=== PATIENT | male | born 1990 | race Caucasian/White ===

== ENCOUNTER 2019-02-08 11:59 | Emergency (ER) | payer BC ==
--- NOTE | 2019-02-08 12:27 | EDM.PDOC ---
ED HPI GENERAL MEDICAL PROBLEM - General Chief Complaint: Upper Extremity Injury/Pain Stated Complaint: RT HAND RED AND SWOLLEN Time Seen by Provider: 02/08/19 12:14 Source of Information: Reports: Patient, RN Notes Reviewed History Limitations: Reports: No Limitations - History of Present Illness INITIAL COMMENTS - FREE TEXT/NARRATIVE: Patient is a 28-year-old male who presents to the ED for evaluation of a reddened swollen hand. The patient states that he recently had a friend , and he was drinking at the and he became frustrated about his friend and he ended up punching a wall the day before last. This resulted in a 1 cm laceration to his middle knuckle of his right hand. The patient states that everything was okay on that day, however he went to work yesterday and his hand was red, swollen and warm. He states when he got home from work he will went into the shower and he squeezed on his hand where the injury was and he got some clear liquid that came out. He notes that this morning he woke up and the backside of his hand was red and swollen as well. The patient denies any numbness or tingling into the extremities and can make a fist, however not with full strength as it is a little bit painful to do so. - Related Data Allergies Allergy/AdvReac Type Severity Reaction Status Date / Time No Known Allergies Allergy Verified 02/08/19 12:11 Home Meds: Home Meds Cephalexin [Keflex] 500 mg PO TID #30 capsule 02/08/19 [Rx] Past Medical History - Past Health History Medical/Surgical History: Denies Medical/Surgical History Social & Family History - Tobacco Use Smoking Status *Q: Current Every Day Smoker Years of Tobacco use: 10 Packs/Tins Daily: 0.3 - Caffeine Use Caffeine Use: Reports: Energy Drinks - Recreational Drug Use Recreational Drug Use: No Review of Systems - Review of Systems Review Of Systems: See Below Constitutional: Denies: Chills, Fever Eyes: Reports: No Symptoms Ears: Reports: No Symptoms Nose: Reports: No Symptoms Mouth/Throat: Reports: No Symptoms Respiratory: Reports: No Symptoms Cardiovascular: Reports: No Symptoms GI/Abdominal: Reports: No Symptoms Genitourinary: Reports: No Symptoms Musculoskeletal: Reports: Hand Pain (Right dorsal hand) Skin: Reports: Erythema, Wound (1cm linear laceration to 3rd MCP) Neurological: Denies: Numbness, Tingling Psychiatric: Reports: No Symptoms ED EXAM, GENERAL - Physical Exam Exam: See Below Exam Limited By: No Limitations General Appearance: Alert, WD/WN, No Apparent Distress Respiratory/Chest: No Respiratory Distress, Lungs Clear, Normal Breath Sounds, No Accessory Muscle Use, Chest Non-Tender Cardiovascular: Normal Peripheral Pulses, Regular Rate, Rhythm, No Murmur Peripheral Pulses: 3+: Radial (L), Radial (R) Extremities: Non-Tender, Normal Capillary Refill, Limited Range of Motion (pt is able to make a fist, however he states it is painful do to so ), Increased Warmth (of dorsal right hand), Redness (of dorsal right hand) Neurological: Alert, Oriented, Normal Cognition, No Motor/Sensory Deficits Psychiatric: Normal Affect, Normal Mood Skin Exam: Warm, Dry, Intact, Normal Color, No Rash, Erythema (to dorsal right hand, this is well demarcated and ends at the patient's wrist joint.), Wound/ Incision (1 cm linear laceration to the 3rd MCP that is scabbed over.) Course - Vital Signs Last Recorded V/S: Last Vital Signs Temp 98.5 F 02/08/19 12:06 Pulse 75 02/08/19 12:06 Resp 18 02/08/19 12:06 BP 128/80 02/08/19 12:06 Pulse Ox 98 02/08/19 12:06 - Orders/Labs/Meds Orders: Active Orders 24 hr Category Date Time Status Vaccines to be Administered [RC] PER UNIT ROUTINE Care 02/08/19 12:36 Active Hand Comp Min 3V Rt [CR] Stat Exams 02/08/19 12:16 Taken Meds: Medications Discontinued Medications Generic Name Dose Route Start Last Admin Trade Name Freq PRN Reason Stop Dose Admin Diphtheria/Tetanus/Acell Pertussis 0.5 ml 02/08/19 12:36 02/08/19 12:44 Adacel IM 02/08/19 12:37 0.5 ml .ONCE ONE Administration - Re-Assessments/Exams Free Text/Narrative Re-Assessment/Exam: 02/08/19 12:28 Patient presents to the ED for the evaluation of a red and swollen right hand. This does involve only the dorsal aspect of his right hand. He is unsure whether or not he could've broken something I did order a hand x-ray to be obtained for further evaluation, and is likely that the gentleman has a cellulitis involving the dorsum of his hand. He will be started on oral antibiotics. 02/08/19 12:34 Patient's hand x-ray is done, and does not appear to have any sign of acute fracture of his metacarpals or phalanges. Will send him a prescription for Keflex 500 mg 3 times daily for 10 days. Since he is unsure of his last tetanus booster, we will go ahead and update that for him today. Departure - Departure Time of Disposition: 12:36 Disposition: Home, Self-Care 01 Condition: Good Clinical Impression: Right hand pain Cellulitis Qualifiers: Site of cellulitis: extremity Site of cellulitis of extremity: upper extremity Laterality: right Qualified Code(s): L03.113 - Cellulitis of right upper limb - Discharge Information *PRESCRIPTION DRUG MONITORING PROGRAM REVIEWED*: No *COPY OF PRESCRIPTION DRUG MONITORING REPORT IN PATIENT SIS: No Prescriptions: Cephalexin [Keflex] 500 mg PO TID #30 capsule Instructions: Cellulitis, Adult Referrals: PCP,None [Primary Care Provider] - Forms: ED Department Discharge Additional Instructions: You have been evaluated in the ED today for your right hand pain. Your x-ray did not demonstrate any sign of an acute fracture of your right hand. Your tetanus booster was updated at today's visit, this will be good for 10 years. The redness on the back of your hand, is most likely due to cellulitis. You have been given a prescription for oral antibiotics. Please take them as directed. These have been electronically sent to the [place] [facility] located in the [facility]. You may take 500 mg Tylenol or 600 mg ibuprofen every 6 hours as needed for pain relief of the hand. Please return to the ED if your symptoms change or worsen. - My Orders Last 24 Hours: My Active Orders 02/08/19 12:16 Hand Comp Min 3V Rt [CR] Stat 02/08/19 12:36 Vaccines to be Administered [RC] PER UNIT ROUTINE - Assessment/Plan Last 24 Hours: My Active Orders 02/08/19 12:16 Hand Comp Min 3V Rt [CR] Stat 02/08/19 12:36 Vaccines to be Administered [RC] PER UNIT ROUTINE
[2019-02-08] MEDS ORDERED: Diphtheria,Pertussis(Acell),Tetanus Vaccine 0.5 ML Syringe IM ONE (12:36)
--- NOTE | 2019-02-09 17:56 | CR ---
Right hand: Four views of the right hand were obtained. Comparison: No previous hand exam. Small cyst is noted within the distal navicular bone. Joint spaces within the hands and wrist appear maintained. No fracture, dislocation or other bony abnormality is seen. Soft tissue swelling is seen. Impression: 1. Soft tissue swelling. 2. Incidental cyst within the distal navicular bone. 3. No acute bony abnormality is identified. Diagnostic code #2
== END 2019-02-08 13:04 | disposition home or self-care (01) ==
LOC: JD.ED 11:59
DX: L03.113 Cellulitis of right upper limb (principal); F17.210 Nicotine dependence, cigarettes, uncomplicated; Z23 Encounter for immunization
CPT/HCPCS: 73130-26-RT; 73130-RT; 90471; 90700; 99283; 99283-25

== ENCOUNTER 2019-09-22 20:13 | Emergency (ER) | payer BC ==
[2019-09-22] MEDS ORDERED: Acetaminophen/Codeine 300-30 MG Tab PO ONE (20:50)
--- NOTE | 2019-09-22 20:52 | EDM.PDOC ---
ED HPI GENERAL MEDICAL PROBLEM - General Chief Complaint: Lower Extremity Injury/Pain Stated Complaint: MATUTE PAIN BOTH LEGS Time Seen by Provider: 09/22/19 20:44 Source of Information: Reports: Patient History Limitations: Reports: No Limitations - History of Present Illness INITIAL COMMENTS - FREE TEXT/NARRATIVE: Patient's unfortunate 29-year-old male who presents emergency department complaining of bilateral matute pain. Patient reports that he works on the [employer] and has been climbing ladders to the nest and illness started having pain to his bilateral shins. Pain is worse with ambulation improves with rest does not alleviate. Patient denies any pain to his calves. Distal neurovascular is intact Bilateral Lower Leg Pain Score (Numeric/FACES): 10 - Related Data Allergies Allergy/AdvReac Type Severity Reaction Status Date / Time No Known Allergies Allergy Verified 02/08/19 12:11 Home Meds: Home Meds Acetaminophen with Codeine [Tylenol with Codeine #3 Tablet] 1 each PO Q4H PRN # 20 tablet 09/22/19 [Rx] Past Medical History - Past Health History Medical/Surgical History: Denies Medical/Surgical History Social & Family History - Tobacco Use Smoking Status *Q: Current Every Day Smoker Years of Tobacco use: 1 Packs/Tins Daily: 0.4 - Caffeine Use Caffeine Use: Reports: Soda - Recreational Drug Use Recreational Drug Use: No Review of Systems - Review of Systems Review Of Systems: See Below Constitutional: Denies: Chills, Diaphoresis, Fever Musculoskeletal: Reports: Leg Pain ED EXAM, GENERAL - Physical Exam Exam: See Below Exam Limited By: No Limitations General Appearance: Alert, WD/WN, Mild Distress Ears: Normal External Exam, Normal Canal, Hearing Grossly Normal, Normal TMs Neck: Normal Inspection, Supple, Non-Tender, Full Range of Motion Respiratory/Chest: No Respiratory Distress, Lungs Clear, Normal Breath Sounds, No Accessory Muscle Use, Chest Non-Tender Cardiovascular: Normal Peripheral Pulses, Regular Rate, Rhythm, No Edema, No Gallop, No JVD, No Murmur, No Rub GI/Abdominal: Normal Bowel Sounds, Soft, Non-Tender, No Organomegaly, No Distention, No Abnormal Bruit, No Mass Extremities: Normal Inspection, Other (Tenderness to palpation anterior surface left matute, distal neurovascular is intact). No: Joe's Sign Skin Exam: Warm, Dry, No Rash Course - Vital Signs Last Recorded V/S: Last Vital Signs Temp 98.4 F 09/22/19 20:44 Pulse 65 09/22/19 20:44 Resp 20 09/22/19 20:44 BP 149/93 H 09/22/19 20:44 Pulse Ox 98 09/22/19 20:44 - Orders/Labs/Meds Orders: Active Orders 24 hr Category Date Time Status Tibia Fibula Lt [CR] Stat Exams 09/22/19 20:50 Taken Meds: Medications Discontinued Medications Generic Name Dose Route Start Last Admin Trade Name Freq PRN Reason Stop Dose Admin Acetaminophen/Codeine Phosphate 1 tab 09/22/19 20:50 09/22/19 21:12 Tylenol With Codeine No.3 300mg/30mg PO 09/22/19 20:51 1 tab ONETIME ONE Administration - Re-Assessments/Exams Free Text/Narrative Re-Assessment/Exam: 09/22/19 21:28 tib/Fib interpreted by me NAD Departure - Departure Time of Disposition: 21:29 Disposition: Home, Self-Care 01 Clinical Impression: Matute splints Qualifiers: Encounter type: initial encounter Laterality: left Qualified Code(s): S86.892A - Other injury of other muscle(s) and tendon(s) at lower leg level, left leg, initial encounter - Discharge Information *PRESCRIPTION DRUG MONITORING PROGRAM REVIEWED*: Yes *COPY OF PRESCRIPTION DRUG MONITORING REPORT IN PATIENT SIS: No Prescriptions: Acetaminophen with Codeine [Tylenol with Codeine #3 Tablet] 1 each PO Q4H PRN # 20 tablet PRN Reason: Pain Referrals: PCP,None [Primary Care Provider] - Forms: ED Department Discharge Additional Instructions: Home, rest, ice, elevate, return as needed for worsening condition Sepsis Event Note - Evaluation Sepsis Screening Result: No Definite Risk - Focused Exam Vital Signs: Vital Signs Temp Pulse Resp BP Pulse Ox 09/22/19 20:44 98.4 F 65 20 149/93 H 98 Date Exam was Performed: 09/22/19 Time Exam was Performed: 21:28 - My Orders Last 24 Hours: My Active Orders 09/22/19 20:50 Tibia Fibula Lt [CR] Stat - Assessment/Plan Last 24 Hours: My Active Orders 09/22/19 20:50 Tibia Fibula Lt [CR] Stat
--- NOTE | 2019-09-23 07:31 | CR ---
Left tibia and fibula: Two views of the left tibia and fibula were obtained. Comparison: No previous tibia or fibula exam. Small sclerotic lesion is noted within the mid to distal tibial diaphysis believed to represent an incidental bone island. No acute fracture or other bony abnormality is seen. Impression: 1. Bone island. 2. Nothing acute is seen on left tibia and fibula exam. Diagnostic code #2 This report was dictated in [place] Standard Time
== END 2019-09-22 21:50 | disposition home or self-care (01) ==
LOC: JD.ED 20:13
DX: S86.892A Other injury of other muscle(s) and tendon(s) at lower leg level, left leg, initial encounter (principal); F17.210 Nicotine dependence, cigarettes, uncomplicated; X58.XXXA Exposure to other specified factors, initial encounter
CPT/HCPCS: 73590; 99283; A9270

== ENCOUNTER 2019-11-29 18:58 | Emergency (ER) | payer BC ==
--- NOTE | 2019-11-29 20:47 | EDM.PDOC ---
ED HPI GENERAL MEDICAL PROBLEM - General Chief Complaint: Upper Extremity Injury/Pain Stated Complaint: LEFT HAND INJURY Time Seen by Provider: 11/29/19 20:11 Source of Information: Reports: Patient, RN Notes Reviewed History Limitations: Reports: No Limitations - History of Present Illness INITIAL COMMENTS - FREE TEXT/NARRATIVE: Patient is a 29-year-old male who presents to the ED for the evaluation of a left hand injury. 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 This was a crush type injury to his left index and middle finger. He states this happened at around 4 PM. He believes his tetanus is up-to-date. There are 3 separate lacerations as well, one on the anterior portion of the second digit, between the PIP and DIP, measuring roughly 2 cm and gaping with no active bleeding. 1 more laceration to the posterior aspect of the digit between the PIP and DIP, this is more of a skin abrasion type injury. There is another laceration on the posterior portion of the third digit, over the knuckle of the DIP, skin flap in nature, not actively bleeding. Patient is having pain in both of these fingers, he states that he took some leftover Tylenol 3 with codeine when he got home for pain relief, he does have ice placed to the digits at time of triage and evaluation. Both fingers are visibly more swollen than the others. He does still have pretty decent range of motion in all digits at this time. Left Finger-Index Pain Score (Numeric/FACES): 10 - Related Data Allergies Allergy/AdvReac Type Severity Reaction Status Date / Time No Known Allergies Allergy Verified 02/08/19 12:11 Home Meds: Home Meds Acetaminophen with Codeine [Tylenol with Codeine #3 Tablet] 1 each PO Q4H PRN # 20 tablet 09/22/19 [Rx] Doxycycline [Vibramycin] 100 mg PO BID #14 tab 11/29/19 [Rx] Past Medical History - Past Health History Medical/Surgical History: Denies Medical/Surgical History Social & Family History - Tobacco Use Smoking Status *Q: Current Every Day Smoker Years of Tobacco use: 10 Packs/Tins Daily: 0.3 - Caffeine Use Caffeine Use: Reports: Soda - Recreational Drug Use Recreational Drug Use: No Review of Systems - Review of Systems Review Of Systems: Comprehensive ROS is negative, except as noted in HPI. Musculoskeletal: Reports: Hand Pain (Left 2nd and 3rd digit injury) Skin: Reports: Wound (See HPI) Neurological: Denies: Numbness, Tingling ED EXAM, GENERAL - Physical Exam Exam: See Below Exam Limited By: No Limitations General Appearance: Alert, WD/WN, No Apparent Distress Ears: Normal External Exam Nose: Normal Inspection Throat/Mouth: Normal Inspection Respiratory/Chest: No Respiratory Distress, Lungs Clear, Normal Breath Sounds, No Accessory Muscle Use, Chest Non-Tender Cardiovascular: Normal Peripheral Pulses, Regular Rate, Rhythm, No Murmur Peripheral Pulses: 3+: Radial (L), Radial (R) Extremities: Normal Range of Motion, Normal Capillary Refill Neurological: Alert, Oriented, Normal Cognition, No Motor/Sensory Deficits Psychiatric: Normal Affect, Normal Mood Skin Exam: Warm, Dry, Normal Color, No Rash, Wound/Incision (Wound #1: Anterior portion second digit left hand, 2 cm gaping wound between PIP and DIP. Wound #2 : Posterior portion second digit left hand, skin abrasion type wound not actively bleeding. Wound #3: Skin flap injury to the posterior aspect, DIP of the left third digit) ED TRAUMA EXTREMITY PROCEDURES - Laceration/Wound Repair Left Anterior Digit - 2nd (Index) Lac/Wound Length In cm: 1.5 Appearance: Superficial, Linear, Mildly Contaminated Distal NVT: Neuro & Vascular Intact, No Tendon Injury Anesthetic Type: Local Local Anesthesia - Lidocaine (Xylocaine): 1% Plain Local Anesthetic Volume: 3cc Skin Prep: Chlorhexidine (Hibiciens), Saline Exploration/Debridement/Repair: Wound Explored, In a Bloodless Field, Explored to Base, No Foreign Material Found Closed With: Sutures Suture Size: 4-0 # of Sutures: 5 Suture Type: Prolene, Interrupted, Simple Sterile Dressing Applied: Nurse Tetanus Status Addressed: Yes Complications: No Left Posterior Digit - 2nd (Index) Lac/Wound Length In cm: 1 Appearance: Superficial, Mildly Contaminated Distal NVT: Neuro & Vascular Intact, No Tendon Injury Exploration/Debridement/Repair: Wound Explored, In a Bloodless Field, Explored to Base, No Foreign Material Found Closed With: Dermabond Sterile Dressing Applied: Nurse Tetanus Status Addressed: Yes Complications: No Left Posterior Digit - 3rd (Middle) Lac/Wound Length In cm: 1.5 Appearance: Superficial, Irregular (L-shaped), Mildly Contaminated Distal NVT: Neuro & Vascular Intact, No Tendon Injury Skin Prep: Chlorhexidine (Hibiciens), Saline Exploration/Debridement/Repair: Wound Explored, In a Bloodless Field, Explored to Base, No Foreign Material Found Closed With: Dermabond Sterile Dressing Applied: Nurse Tetanus Status Addressed: Yes Complications: No - Splinting Left 2nd Digit Splint Site: left 2nd digit Pre-Procedure NV Status: Normal Post-Procedure NV Status: Normal Splint Material: Aluminum-Foam (finger cage) Applied & Form Fitted By: Nurse Provider Post-Splint Application NV Check: NV Status Normal, Good Position Complications: No Course - Vital Signs Last Recorded V/S: Last Vital Signs Temp 97.2 F 11/29/19 19:24 Pulse 74 11/29/19 19:24 Resp 16 11/29/19 19:24 BP 128/82 11/29/19 19:24 Pulse Ox 97 11/29/19 19:24 - Orders/Labs/Meds Meds: Medications Discontinued Medications Generic Name Dose Route Start Last Admin Trade Name Deana PRN Reason Stop Dose Admin Lidocaine HCl 10 ml 11/29/19 21:00 Xylocaine 1% INJECT 11/29/19 21:01 ONETIME ONE Departure - Departure Time of Disposition: 20:49 Disposition: Home, Self-Care 01 Condition: Fair Clinical Impression: Closed fracture of tuft of distal phalanx of finger Crushing injury of finger(s) Qualifiers: Encounter type: initial encounter Qualified Code(s): S67.10XA - Crushing injury of unspecified finger(s), initial encounter - Discharge Information *PRESCRIPTION DRUG MONITORING PROGRAM REVIEWED*: No *COPY OF PRESCRIPTION DRUG MONITORING REPORT IN PATIENT SIS: No Prescriptions: Doxycycline [Vibramycin] 100 mg PO BID #14 tab Instructions: Finger Fracture, Adult, [id number], Crush Injury of the Hand, [id number] Referrals: PCP,None [Primary Care Provider] - Forms: ED Department Discharge Additional Instructions: You have been evaluated in the ED for your laceration. Sutures will need to stay in for 10-14 days (2-12/10) You were given a prescription for antibiotics, please fill and take as prescribed. You may return to the ED or clinic for removal. Please keep this area clean and dry, you may cleanse with regular soap and water. No vigorous scrubbing. You were provided with a aluminum foam cage type splint, please keep this on the second digit as much as possible to help provide healing for the small fracture you have at the distal portion of your finger. You may take 600 mg ibuprofen every 6 hours for further pain relief, try to ice the area as much as possible to help relieve some of the swelling. Do not exceed 3200 mg ibuprofen in a 24-hour time span. Watch out for signs of infection like increased redness, swelling, pain at the laceration site, or if you should develop any fevers or chills. Please return to ED if your symptoms change or worsen. Sepsis Event Note - Evaluation Sepsis Screening Result: No Definite Risk - Focused Exam Vital Signs: Vital Signs Temp Pulse Resp BP Pulse Ox 11/29/19 19:24 97.2 F 74 16 128/82 97 Date Exam was Performed: 11/29/19 Time Exam was Performed: 21:31
[2019-11-29] MEDS ORDERED: Lidocaine 1% 10 ML MDV INJECT ONE (21:00)
--- NOTE | 2019-11-29 21:15 | CR ---
Left hand: 4 views of the left hand were obtained. Comparison: No previous hand exam. Tuft fracture is noted within the distal second finger. Margins of this fracture are somewhat smooth and this may be old, please correlate. Joint spaces are preserved. No acute fracture or other abnormality is appreciated. Impression: 1. Tuft fracture involving the distal left second finger. As mentioned above this is most likely old, please correlate that patient has no acute symptoms to this area. 2. No additional abnormality is seen on left hand exam. Diagnostic code #2 Study was dictated in [place] Standard Time
== END 2019-11-29 21:42 | disposition home or self-care (01) ==
LOC: JD.ED 18:58
DX: S67.191A Crushing injury of left index finger, initial encounter (principal); S67.193A Crushing injury of left middle finger, initial encounter; S62.631A Displaced fracture of distal phalanx of left index finger, initial encounter for closed fracture; F17.210 Nicotine dependence, cigarettes, uncomplicated; W23.0XXA Caught, crushed, jammed, or pinched between moving objects, initial encounter
CPT/HCPCS: 12002; 73130; 99283; J2001

== ENCOUNTER 2020-08-19 19:07 | Emergency (ER) | payer SELFPAY ==
[2020-08-19] MEDS ORDERED: Lidocaine 1% 10 ML MDV INJECT ONE (19:50)
--- NOTE | 2020-08-19 20:05 | EDM.PDOC ---
ED HPI GENERAL MEDICAL PROBLEM - General Chief Complaint: Skin Complaint Stated Complaint: LUMP BEHIND LEFT EAR Time Seen by Provider: 08/19/20 19:43 Source of Information: Reports: Patient, RN Notes Reviewed History Limitations: Reports: No Limitations - History of Present Illness INITIAL COMMENTS - FREE TEXT/NARRATIVE: Patient is a 30-year-old male who presents to the ED for evaluation of a lump behind his left ear. Patient notes that he has had these lumps for quite a while, however he went to the shaver recently and he states that the shaver "poked" at this lump, until it became inflamed and tender. He cannot see the lump itself enough to know if this looks like a pimple, or something he could pop. He did not feel comfortable with his girlfriend doing as such either. He did not take any vkxb-igp-gzmuaql pain medicine like Tylenol ibuprofen for this. This swelling does appear to be roughly dime size, raised, slightly tender to the touch. Patient denies any other sick-like symptoms, fever/chills, cough/shortness of breath, nausea/vomiting/diarrhea. - Related Data Allergies Allergy/AdvReac Type Severity Reaction Status Date / Time No Known Allergies Allergy Verified 08/19/20 19:17 Home Meds: Home Meds Doxycycline [Vibramycin] 100 mg PO BID 7 Days #14 tab 08/19/20 [Rx] Past Medical History Gastrointestinal History: Reports: Other (See Below) Other Gastrointestinal History: Has had a loss of appetite and was dieting and lost 40 lbs. Psychiatric History: Reports: ADD, ADHD - Past Surgical History HEENT Surgical History: Reports: Oral Surgery Social & Family History - Family History Family Medical History: No Pertinent Family History - Tobacco Use Tobacco Use Status *Q: Current Every Day Tobacco User Years of Tobacco use: 4 Packs/Tins Daily: 0.5 - Caffeine Use Caffeine Use: Reports: Coffee, Energy Drinks, Soda, Tea - Recreational Drug Use Recreational Drug Use: No ED ROS GENERAL - Review of Systems Review Of Systems: Comprehensive ROS is negative, except as noted in HPI. ED EXAM, SKIN/RASH Exam: See Below Exam Limited By: No Limitations General Appearance: Alert, WD/WN, No Apparent Distress Ears: Normal External Exam, Normal Canal, Hearing Grossly Normal, Normal TMs, Other (raised slightly tender lump to posterior left ear, about dime sized, there seems to be a small pin point head near the inferior portion of this.) Head: Atraumatic, Normocephalic Neck: Normal Inspection Respiratory/Chest: No Respiratory Distress, Lungs Clear, Normal Breath Sounds, No Accessory Muscle Use, Chest Non-Tender Cardiovascular: Normal Peripheral Pulses, Regular Rate, Rhythm, No Murmur Extremities: Normal Inspection, Normal Capillary Refill Neurological: Alert, Oriented, Normal Cognition, No Motor/Sensory Deficits Psychiatric: Normal Affect, Normal Mood Skin: Warm, Dry, Intact, Normal Color, No Rash, Other (see ear assessment for further detail of lesion) ED SKIN PROCEDURES - I&D Site: posterior left ear Skin Prep: Chlorhexidine (Hibiciens) Local Anesthesia: Lidocaine: 1% Plain Local Anesthetic Volume: 4cc, 5cc Area Incised With: 11 Blade Drainage: Purulent, Bloody, Small Amount Probed to Break Up Loculations: Yes Packed With: 1/2 in. Iodoform Sterile Dressing: Adhesive Dressing Complications: No Course - Vital Signs Last Recorded V/S: Last Vital Signs Temp 99.0 F 08/19/20 19:21 Pulse 64 08/19/20 19:21 Resp 16 08/19/20 19:21 BP 118/81 08/19/20 19:21 Pulse Ox 97 08/19/20 19:21 - Orders/Labs/Meds Meds: Medications Discontinued Medications Generic Name Dose Route Start Last Admin Trade Name Deana PRN Reason Stop Dose Admin Lidocaine HCl 10 ml 08/19/20 19:50 Xylocaine 1% INJECT 08/19/20 19:51 ONETIME ONE Departure - Departure Time of Disposition: 20:28 Disposition: Home, Self-Care 01 Condition: Good Clinical Impression: Abscess of skin Qualifiers: Site of cutaneous abscess: neck Qualified Code(s): L02.11 - Cutaneous abscess of neck - Discharge Information *PRESCRIPTION DRUG MONITORING PROGRAM REVIEWED*: No *COPY OF PRESCRIPTION DRUG MONITORING REPORT IN PATIENT SIS: No Prescriptions: Doxycycline [Vibramycin] 100 mg PO BID 7 Days #14 tab Instructions: Skin Abscess Referrals: PCP,None [Primary Care Provider] - Forms: ED Department Discharge Additional Instructions: You were evaluated in the ER today regarding a suspected skin infection. It does appear that you had an abscess. This area was cut open and drained, and a packing strip was placed to allow this to drain from the inside out. This will need to stay in place for the next 24 hours, you may have help removing this tomorrow, please just pulled the packing out in its entirety. You may keep the area bandaged after this with regular gauze and tape, and cleanse the area with warm soapy water. You were given an antibiotic, doxycycline 100 mg PO BID x 7 days. Please take as prescribed until the course is done or told otherwise by different provider. Please note that this antibiotic will take at least 48 hours to start working appropriately. You may try to use heat/ice packs to the area to help reduce pain/swelling. You may take 500 mg Tylenol or 600 mg ibuprofen every 6 hours as needed for further pain relief. Do not exceed 4000 mg Tylenol or 3200 mg ibuprofen in a 24-hour time span. There is a mortgage loan officer originator by the name of Stanley Barker in [facility], his telephone number is [phone]. This is at the [facility] dermatology clinic. You may follow up with him regarding your cysts for further evaluation if he deems this warranted. I would recommend you follow-up with your regular care provider, for further laboratory testing regarding nutritional status and your complaints of hair loss. That is not something that we can unfortunately take care of out of the ER tonight. If you do not have a care provider, please call [phone] to set up with a family practice provider of your choice. Please return to the ER at any time if your symptoms change or worsen. Sepsis Event Note (ED) - Evaluation Sepsis Screening Result: No Definite Risk - Focused Exam Vital Signs: Vital Signs Temp Pulse Resp BP Pulse Ox 08/19/20 19:21 99.0 F 64 16 118/81 97
== END 2020-08-19 20:52 | disposition home or self-care (01) ==
LOC: JD.ED 19:07
DX: L02.11 Cutaneous abscess of neck (principal); F17.210 Nicotine dependence, cigarettes, uncomplicated
CPT/HCPCS: 10061; 99282; J2001; 99283

== ENCOUNTER 2020-12-05 18:56 | Emergency (ER) | payer OTHER ==
--- NOTE | 2020-12-05 19:37 | EDM.PDOC ---
ED HPI GENERAL MEDICAL PROBLEM - General Chief Complaint: General Stated Complaint: COVID SYMPTOMS Time Seen by Provider: 12/05/20 19:15 Source of Information: Reports: Patient History Limitations: Reports: No Limitations - History of Present Illness INITIAL COMMENTS - FREE TEXT/NARRATIVE: The patient presents with possible COVID 19 infection. He lost his sense of smell over a week ago. He also has some congestion, a slight cough and shortness of breath. His girlfriend had similar symptoms and she got tested and she was negative. He has no chest pain, abdominal pain or diarrhea. He does smoke. He has no other symptoms. He does not have a fever or chills. Onset: Gradual Duration: Week(s): Severity: Moderate Improves with: Reports: None Worsens with: Reports: None Associated Symptoms: Reports: Nausea/Vomiting. Denies: Chest Pain, Cough, Fever/Chills - Related Data Allergies Allergy/AdvReac Type Severity Reaction Status Date / Time No Known Allergies Allergy Verified 12/05/20 19:18 Home Meds: Home Meds . [No Known Home Meds] 12/05/20 [History] Past Medical History - Past Health History Medical/Surgical History: Denies Medical/Surgical History HEENT History: Reports: None Cardiovascular History: Reports: None Respiratory History: Reports: None Gastrointestinal History: Reports: Other (See Below) Other Gastrointestinal History: Has had a loss of appetite and was dieting and lost 40 lbs. Genitourinary History: Reports: None Musculoskeletal History: Reports: None Neurological History: Reports: None Psychiatric History: Reports: ADD, ADHD Endocrine/Metabolic History: Reports: None Hematologic History: Reports: None Immunologic History: Reports: None Oncologic (Cancer) History: Reports: None Dermatologic History: Reports: None - Infectious Disease History Infectious Disease History: Reports: None - Past Surgical History Head Surgeries/Procedures: Reports: None HEENT Surgical History: Reports: Oral Surgery Musculoskeletal Surgical History: Reports: None Social & Family History - Family History Family Medical History: No Pertinent Family History - Tobacco Use Tobacco Use Status *Q: Current Every Day Tobacco User Years of Tobacco use: 2 Packs/Tins Daily: 0.5 - Caffeine Use Caffeine Use: Reports: Coffee - Recreational Drug Use Recreational Drug Use: No ED ROS GENERAL - Review of Systems Review Of Systems: See Below Constitutional: Reports: No Symptoms HEENT: Reports: No Symptoms Respiratory: Reports: No Symptoms Cardiovascular: Reports: No Symptoms Endocrine: Reports: No Symptoms GI/Abdominal: Reports: No Symptoms : Reports: No Symptoms Musculoskeletal: Reports: No Symptoms Skin: Reports: No Symptoms ED EXAM, GENERAL - Physical Exam Exam: See Below Exam Limited By: No Limitations General Appearance: Alert, No Apparent Distress Ears: Normal External Exam Nose: Normal Inspection Head: Atraumatic, Normocephalic Neck: Normal Inspection Respiratory/Chest: No Respiratory Distress, Lungs Clear, Normal Breath Sounds Cardiovascular: Regular Rate, Rhythm, No Edema, No Murmur GI/Abdominal: Soft, Non-Tender, No Organomegaly, No Mass Back Exam: Normal Inspection Extremities: Normal Inspection Course - Vital Signs Last Recorded V/S: Last Vital Signs Temp 97.5 F 12/05/20 19:16 Pulse 71 12/05/20 19:16 Resp 16 12/05/20 19:16 BP 130/65 12/05/20 19:16 Pulse Ox 96 12/05/20 19:16 - Orders/Labs/Meds Orders: Active Orders 24 hr Category Date Time Status CORONAVIRUS COVID-19 MANDO [MOLEC] Stat Lab 12/05/20 19:31 Ordered - Re-Assessments/Exams Free Text/Narrative Re-Assessment/Exam: 12/05/20 19:37 I will check him for COVID 19. Departure - Departure Time of Disposition: 19:40 Disposition: Home, Self-Care 01 Condition: Good Clinical Impression: Viral URI - Discharge Information *PRESCRIPTION DRUG MONITORING PROGRAM REVIEWED*: Not Applicable *COPY OF PRESCRIPTION DRUG MONITORING REPORT IN PATIENT SIS: Not Applicable Referrals: PCP,None [Primary Care Provider] - Additional Instructions: Take motrin or tylenol as needed for fever or pain. Drink plenty of fluids. Please return if you are worse. Sepsis Event Note (ED) - Evaluation Sepsis Screening Result: No Definite Risk - Focused Exam Vital Signs: Vital Signs Temp Pulse Resp BP Pulse Ox 12/05/20 19:16 97.5 F 71 16 130/65 96 - My Orders Last 24 Hours: My Active Orders 12/05/20 19:31 CORONAVIRUS COVID-19 MANDO [MOLEC] Stat - Assessment/Plan Last 24 Hours: My Active Orders 12/05/20 19:31 CORONAVIRUS COVID-19 MANDO [MOLEC] Stat
[2020-12-05] MEDS ORDERED: Amoxicillin 500 MG Cap PO ONE (20:02)
== END 2020-12-05 20:10 | disposition home or self-care (01) ==
LOC: JD.ED 18:56
DX: J06.9 Acute upper respiratory infection, unspecified (principal); F17.200 Nicotine dependence, unspecified, uncomplicated
CPT/HCPCS: 99284; A9270; 99283

== ENCOUNTER 2021-01-12 20:07 | Emergency (ER) | payer SELFPAY | END 2021-01-12 21:19 | LOC: JD.ED 20:07 | DX: Z53.21 Procedure and treatment not carried out due to patient leaving prior to being seen by health care provider (principal) ==

== ENCOUNTER 2021-02-08 22:39 | Emergency (ER) | payer OTHER ==
--- NOTE | 2021-02-08 23:13 | EDM.PDOC ---
ED HPI GENERAL MEDICAL PROBLEM - General Chief Complaint: ENT Problem Stated Complaint: LEFT EAR PAIN Time Seen by Provider: 02/08/21 23:10 Source of Information: Reports: Patient History Limitations: Reports: No Limitations - History of Present Illness INITIAL COMMENTS - FREE TEXT/NARRATIVE: Patient arrived to ED via private vehicle Reports evaluation for left ear pain on 02/07/2021 at walk-in clinic Symptoms began 4 or 5 days prior to that He was prescribed eardrops and an oral antibiotic, with which he states compliance (records show cephalexin and neomycin/polymyxin/hydrocortisone) Reports worsening of ear pain despite treatment Has been taking ibuprofen without significant improvement States his girlfriend looked at the ear canal and told him it was swollen shut Endorses radiation of pain behind the ear and into the left side of neck and jaw Denies nausea, vomiting, fever Left Ear Pain Score (Numeric/FACES): 10 - Related Data Allergies Allergy/AdvReac Type Severity Reaction Status Date / Time No Known Allergies Allergy Verified 02/08/21 22:49 Home Meds: Home Meds Neomycin/Polymyxin B Sulf/HC [Muicjegy-Bxraetsgz-Iy Ear Soln] 1 drop OT QID 02/08/21 [History] cephALEXin [Cephalexin] 500 mg PO QID 02/08/21 [History] Acetaminophen/oxyCODONE [Percocet 325-5 MG] 1 tab PO Q6H PRN #12 tab 02/09/21 [Rx] Amoxicillin/Clavulanate K [Augmentin 875-125 MG] 1 tab PO Q12HR #15 tab 02/09/21 [Rx] Past Medical History - Past Health History Medical/Surgical History: Denies Medical/Surgical History HEENT History: Reports: None Cardiovascular History: Reports: None Respiratory History: Reports: None Gastrointestinal History: Reports: Other (See Below) Other Gastrointestinal History: Has had a loss of appetite and was dieting and lost 40 lbs. Genitourinary History: Reports: None Musculoskeletal History: Reports: None Neurological History: Reports: None Psychiatric History: Reports: ADD, ADHD Endocrine/Metabolic History: Reports: None Hematologic History: Reports: None Immunologic History: Reports: None Oncologic (Cancer) History: Reports: None Dermatologic History: Reports: None - Infectious Disease History Infectious Disease History: Reports: None - Past Surgical History HEENT Surgical History: Reports: Oral Surgery Social & Family History - Family History Family Medical History: No Pertinent Family History - Tobacco Use Tobacco Use Status *Q: Current Every Day Tobacco User Years of Tobacco use: 5 Packs/Tins Daily: 0.5 - Caffeine Use Caffeine Use: Reports: Energy Drinks - Recreational Drug Use Recreational Drug Use: No ED ROS GENERAL - Review of Systems Review Of Systems: See Below Free Text/Narrative/Comment: Constitutional - no fever Eyes - no eye pain; no visual disturbance ENT - no rhinorrhea; no congestion; no epistaxis; left ear pain and drainage Cardiovascular - no chest pain Respiratory - no shortness of breath; no cough Gastrointestinal - no abdominal pain; no nausea; no vomiting; no diarrhea Genitourinary - no dysuria Musculoskeletal - no neck pain; no back pain; no extremity injury Neurological - no headache; no speech disturbance; no weakness ED EXAM, GENERAL - Physical Exam Exam: See Below Free Text/Narrative:: Constitutional - awake; alert; mild to moderate pain distress Head - no facial swelling or weakness Eyes - extra ocular motion intact; conjunctiva normal; pupils equal and reactive to light ENT - no nasal deformity; no epistaxis; normal phonation; mucus membranes moist; oropharynx normal; tenderness to palpation left external ear; left ear canal occluded by swelling/edema with scant cloudy drainage present; no mastoid/retroauricular swelling Neck - no swelling; no mass Respiratory - normal respiratory effort; no crackles or wheezing; no stridor Cardiovascular - regular rhythm; normal rate; S1; S2; grade 1/6 systolic murmur Musculoskeletal - grossly normal strength and motion; no swelling or deformity Skin - warm; dry Neurologic - normal speech; no weakness; gait intact Psychiatric - normal mood and affect; memory and attention normal Course - Vital Signs Text/Narrative:: . Considered etiologies included: Ear pain, otitis media, otitis externa, mastoiditis Symptoms and examination were discussed Investigations were initiated Analgesic treatment was provided with morphine Ampicillin/sulbactam was administered for additional antibiotic therapy There was significant improvement in pain severity with ED treatment, and he was able to fall asleep Results were discussed, showing no complications An ear wick was inserted in the left auditory canal to facilitate otic medication therapy He was prescribed amoxicillin/clavulanate in place of cephalexin Limited, short-term, analgesic treatment with oxycodone/acetaminophen was also prescribed Primary care and/or ENT follow-up was advised Patient was felt to be stable for outpatient follow-up Return precautions were provided Last Recorded V/S: Last Vital Signs Temp 36.4 C 02/08/21 22:46 Pulse 77 02/08/21 22:46 Resp 16 02/08/21 22:46 BP 127/67 02/08/21 22:46 Pulse Ox 98 02/08/21 22:46 - Orders/Labs/Meds Orders: Active Orders 24 hr Category Date Time Status Peripheral IV Care [RC] . DIRECTED Care 02/08/21 23:28 Active Maxillofacial with CM [Max Facial Sinus w Cont] [CT] Exams 02/08/21 23:29 Taken Stat Acetaminophen/oxyCODONE [Percocet 325-5 MG] Med 02/09/21 01:39 Once 1 tab PO ONETIME ONE Sodium Chloride 0.9% [Saline Flush] Med 02/08/21 23:28 Active 10 ml FLUSH ASDIRECTED PRN Sodium Chloride 0.9% [Saline Flush] Med 02/08/21 23:35 Active 10 ml FLUSH ONETIME PRN Peripheral IV Insertion Adult [OM.PC] Stat Oth 02/08/21 23:28 Ordered Medication Orders Oxycodone/Acetaminophen (Acetaminophen/Oxycodone 325-5 Mg Tab) 1 tab PO ONETIME ONE Stop: 02/09/21 01:40 Sodium Chloride (Sodium Chloride 0.9% 10 Ml Syringe) 10 ml FLUSH ASDIRECTED PRN PRN Reason: Keep Vein Open Last Admin: 02/09/21 00:11 Dose: 10 ml Documented by: RIKI Sodium Chloride (Sodium Chloride 0.9% 10 Ml Syringe) 10 ml FLUSH ONETIME PRN PRN Reason: Keep Vein Open Last Admin: 02/09/21 00:13 Dose: 10 ml Documented by: Admin: 02/09/21 00:01 Dose: 10 ml Documented by: [email or web address] Labs: Laboratory Tests 02/08/21 02/08/21 Range/Units 23:35 23:35 WBC 8.97 (4.23-9.07) K/mm3 RBC 4.21 L (4.63-6.08) M/mm3 Hgb 14.4 (13.7-17.5) gm/dl Hct 41.4 (40.1-51.0) % MCV 98.3 H (79.0-92.2) fl MCH 34.2 H (25.7-32.2) pg MCHC 34.8 (32.2-35.5) g/dl RDW Std Deviation 41.3 (35.1-43.9) fL Plt Count 183 (163-337) K/mm3 MPV 12.0 (9.4-12.3) fl Neut % (Auto) 49.1 (34.0-67.9) % Lymph % (Auto) 39.2 (21.8-53.1) % Blair % (Auto) 10.4 (5.3-12.2) % Eos % (Auto) 1.1 (0.8-7.0) Baso % (Auto) 0.1 (0.1-1.2) % Neut # (Auto) 4.40 (1.78-5.38) K/mm3 Lymph # (Auto) 3.52 (1.32-3.57) K/mm3 Blair # (Auto) 0.93 H (0.30-0.82) K/mm3 Eos # (Auto) 0.10 (0.04-0.54) K/mm3 Baso # (Auto) 0.01 (0.01-0.08) K/mm3 Sodium 139 (136-145) mEq/L Potassium 4.0 (3.5-5.1) mEq/L Chloride 102 (98-107) mEq/L Carbon Dioxide 30 (21-32) mEq/L Anion Gap 11.0 (5-15) BUN 18 (7-18) mg/dL Creatinine 1.1 (0.7-1.3) mg/dL Est Cr Clr Drug Dosing 95.00 mL/min Estimated GFR (MDRD) > 60 (>60) mL/min BUN/Creatinine Ratio 16.4 (14-18) Glucose 92 (74-106) mg/dL Calcium 8.6 (8.5-10.1) mg/dL Total Bilirubin 0.3 (0.2-1.0) mg/dL AST 19 (15-37) U/L ALT 32 (16-63) U/L Alkaline Phosphatase 74 (46-116) U/L Total Protein 7.1 (6.4-8.2) g/dl Albumin 3.6 (3.4-5.0) g/dl Globulin 3.5 gm/dL Albumin/Globulin Ratio 1.0 (1-2) Meds: Medications Generic Name Dose Route Start Last Admin Trade Name Deana PRN Reason Stop Dose Admin Oxycodone/Acetaminophen 1 tab 02/09/21 01:39 Acetaminophen/Oxycodone 325-5 Mg Tab PO 02/09/21 01:40 ONETIME ONE Sodium Chloride 10 ml 02/08/21 23:28 02/09/21 00:11 Sodium Chloride 0.9% 10 Ml Syringe FLUSH 10 ml ASDIRECTED PRN Administration Keep Vein Open Sodium Chloride 10 ml 02/08/21 23:35 02/09/21 00:13 Sodium Chloride 0.9% 10 Ml Syringe FLUSH 10 ml ONETIME PRN Administration Keep Vein Open Discontinued Medications Generic Name Dose Route Start Last Admin Trade Name Deana PRN Reason Stop Dose Admin Ampicillin Sodium/Sulbactam 100 mls @ 200 mls/hr 02/08/21 23:28 02/09/21 00:12 Sodium 1.5 gm/ Sodium Chloride IV 02/08/21 23:57 200 mls/hr ONETIME ONE Administration Lactated Ringer's 1,000 mls @ 999 mls/hr 02/08/21 23:28 02/09/21 00:39 Ringers, Lactated IV 02/09/21 00:28 999 mls/hr .BOLUS ONE Administration Iopamidol 100 ml 02/08/21 23:35 02/08/21 23:46 Iopamidol 612 Mg/Ml 100 Ml Bottle IVPUSH 02/08/21 23:36 Not Given ONETIME ONE Iopamidol 50 ml 02/08/21 23:46 02/09/21 00:01 Iopamidol 612 Mg/Ml 50 Ml Sdv IVPUSH 02/08/21 23:47 50 ml ONETIME ONE Administration Morphine Sulfate 4 mg 02/08/21 23:28 02/09/21 00:10 Morphine 4 Mg/Ml Syringe IVPUSH 02/08/21 23:29 4 mg ONETIME ONE Administration - Radiology Interpretation Free Text/Narrative:: CT maxillofacial/sinuses, IV contrast, preliminary radiology report: 1. Question left otitis externa 2. Mastoid air cells are symmetric and unremarkable Departure - Departure Time of Disposition: 01:30 Disposition: Home, Self-Care 01 Condition: Good Clinical Impression: Otitis externa of left ear Qualifiers: Otitis externa type: unspecified type Chronicity: acute Qualified Code(s): H60.502 - Unspecified acute noninfective otitis externa, left ear - Discharge Information Prescriptions: Amoxicillin/Clavulanate K [Augmentin 875-125 MG] 1 tab PO Q12HR #15 tab Acetaminophen/oxyCODONE [Percocet 325-5 MG] 1 tab PO Q6H PRN #12 tab PRN Reason: severe pain Instructions: Otitis Externa Referrals: PCP,None [Primary Care Provider] - Forms: ED Department Discharge Additional Instructions: Return if condition worsens May resume general activity and regular diet as tolerated Stop CEPHALEXIN antibiotic Take AMOXICILLIN/CLAVULANATE antibiotic as prescribed, until completed Continue NEOMYCIN/POLYMYXIN/HC eardrops as prescribed, apply over end of ear wick then lie with left ear facing up for 5 minutes Keep the ear wick in place for as long as possible, until treatment is completed Take IBUPROFEN 600 mg every 6 hours as needed for pain/inflammation May use OXYCODONE/ACETAMINOPHEN sparingly for severe pain, 1-2 tablets every 6 hours as needed (do not exceed 4000 mg acetaminophen in any 24-hour period) Follow-up with primary care provider and/or ENT (Ear, Nose, Throat) specialist is recommended within 3-5 days Call [facility] ([phone]) or [facility] ([phone]) to arrange ENT consultation Sepsis Event Note (ED) - Evaluation Sepsis Screening Result: No Definite Risk - Focused Exam Vital Signs: Vital Signs Temp Pulse Resp BP Pulse Ox 02/08/21 22:46 36.4 C 77 16 127/67 98 - My Orders Last 24 Hours: My Active Orders 02/08/21 23:28 Peripheral IV Care [RC] . DIRECTED Sodium Chloride 0.9% [Saline Flush] 10 ml FLUSH ASDIRECTED PRN Peripheral IV Insertion Adult [OM.PC] Stat 02/08/21 23:29 Maxillofacial with CM [Max Facial Sinus w Cont] [CT] Stat 02/08/21 23:35 Sodium Chloride 0.9% [Saline Flush] 10 ml FLUSH ONETIME PRN 02/09/21 01:39 Acetaminophen/oxyCODONE [Percocet 325-5 MG] 1 tab PO ONETIME ONE - Assessment/Plan Last 24 Hours: My Active Orders 02/08/21 23:28 Peripheral IV Care [RC] . DIRECTED Sodium Chloride 0.9% [Saline Flush] 10 ml FLUSH ASDIRECTED PRN Peripheral IV Insertion Adult [OM.PC] Stat 02/08/21 23:29 Maxillofacial with CM [Max Facial Sinus w Cont] [CT] Stat 02/08/21 23:35 Sodium Chloride 0.9% [Saline Flush] 10 ml FLUSH ONETIME PRN 02/09/21 01:39 Acetaminophen/oxyCODONE [Percocet 325-5 MG] 1 tab PO ONETIME ONE
[2021-02-08] MEDS ORDERED: Morphine 4 MG/ML Syringe IVPUSH ONE (23:28)
[2021-02-08] MEDS ORDERED: Ampicillin/Sulbactam Na 1.5 GM in Sodium Chloride 0.9% 100 ML IV ONE (23:28)
[2021-02-08] MEDS ORDERED: Sodium Chloride 0.9% 10 ML Syringe FLUSH PRN (23:28)
[2021-02-08] MEDS ORDERED: Lactated Ringers 1,000 ML IV ONE (23:28)
[2021-02-08] MEDS ORDERED: Iopamidol 612 MG/ML 100 ML Bottle IVPUSH ONE (23:35)
[2021-02-08] MEDS ORDERED: Iopamidol 612 MG/ML 50 ML SDV IVPUSH ONE (23:46)
[2021-02-09] MEDS: Sodium Chloride 0.9% 10 ML Syringe FLUSH PRN ×2 (00:01→00:13)
[2021-02-09] MEDS ORDERED: Acetaminophen/oxyCODONE 325-5 MG Tab PO ONE (01:39)
--- NOTE | 2021-02-09 07:28 | CT ---
CT maxillofacial Technique: Multiple axial sections were obtained through the maxillofacial structures. Reconstructed coronal and sagittal images were obtained. Comparison: No prior study of the facial structures is available. Findings: Both mastoid sinuses are clear. Both middle ear cavities are clear. Symmetric ossicular structures are seen. Minimal soft tissue density is noted within the external auditory canal on the left side. Right external auditory canal appears patent. Right and left orbits appear normal. No retrobulbar mass is seen. Extraocular muscles and optic nerves are symmetric. There is mucosal thickening within the inferior right maxillary sinus which most likely is chronic. No air-fluid levels are seen within the paranasal sinuses. No acute osseous abnormality is appreciated. No surrounding soft tissue abnormality is appreciated. Impression: 1. Soft tissue density within the outer external canal on the left side either due to cerumen or other abnormality. Please correlate by physical exam. 2. Slight chronic appearing mucosal thickening within the right maxillary sinus. 3. No additional abnormality is seen. Diagnostic code #3 I agree with preliminary report from [facility], finalized on 02/09/21, 1:24 AM CDT, code 1
== END 2021-02-09 01:48 | disposition home or self-care (01) ==
LOC: JD.ED 22:39
DX: H60.502 Unspecified acute noninfective otitis externa, left ear (principal); Z72.0 Tobacco use
CPT/HCPCS: 36415; 70487; 80053; 85025; 96365; 96375; 99283; A9270; J0295; J2270; J7120; Q9967; 99284

== ENCOUNTER 2021-02-10 05:01 | Emergency (ER) | payer OTHER ==
--- NOTE | 2021-02-10 05:39 | EDM.PDOC ---
ED HPI GENERAL MEDICAL PROBLEM - General Chief Complaint: ENT Problem Stated Complaint: ear pain Time Seen by Provider: 02/10/21 05:18 Source of Information: Reports: Patient, Old Records (ED 02/08/2021) History Limitations: Reports: No Limitations - History of Present Illness INITIAL COMMENTS - FREE TEXT/NARRATIVE: Mr. Lee is a 30-year-old man who, medical records indicate, developed left ear pain on or about 02/02/2021 or , 02/03/2021. He was seen at the walk-in clinic this past 02/07/2021, at which time he was diagnosed with left otitis externa. He was prescribed Cortisporin otic suspension and oral cephalexin. His symptoms did not improve, therefore he was seen in this ED this past 02/08/2021. He denied a history of a fever, and was found to be hemodynamically stable, afebrile, saturating 98% on room air. On examination, he was found to have tenderness to palpation of the left external ear, and the left external auditory canal was occluded with swelling and edema with a scant cloudy drainage present. There was no mastoid process or retroauricular swelling noted. Work-up included a CBC, CMP, and CT of the maxillofacial/sinuses with IV contrast. The blood work was unremarkable, while the CT was read as possible left otitis externa, but normal mastoid air cells. An ear wick was placed by the ED physician. The patient was treated with IV morphine, IV Unasyn IV fluid, then discharged home with prescriptions for Augmentin and Percocet. He was instructed to discontinue the cephalexin. He was instructed to follow-up with a PCP or ENT, and given phone numbers for both the [facility] and [facility] physician referral services. The patient now returns to the ED stating that ever since the ear wick was placed, his pain and swelling has increased, and he states that the skin on the left side of his cheek is becoming numb. He has not had a fever. He states that he has been taking his medications as prescribed, but that the Percocet only relieves his pain for about 1 hour. He states that he is not out of the Percocet yet. He states that he has not called either physician referral service number, stating that he was not instructed to. Here in the ED this morning, the patient is found to be hemodynamically stable and afebrile. Prior to Sunday or last week, the patient denies having a recent fever, chills, sore throat, ear pain, nasal or sinus congestion, cough, dyspnea, chest pain, palpitations, nausea, vomiting, constipation, diarrhea, abdominal pain, urinary symptoms, recent weight gain or weight loss, recent bloody bowel movements or black bowel movements, recent joint aches, headaches, or rashes. I reviewed the PMHx/PSHx/SocHx, which was reviewed with the patient by the RN. The patient does not have a PCP. Left Ear Pain Score (Numeric/FACES): 10 - Related Data Allergies Allergy/AdvReac Type Severity Reaction Status Date / Time No Known Allergies Allergy Verified 02/08/21 22:49 Home Meds: Home Meds Neomycin/Polymyxin B Sulf/HC [Iivjyzig-Vukptueqv-Au Ear Soln] 1 drop OT QID 02/08/21 [History] cephALEXin [Cephalexin] 500 mg PO QID 02/08/21 [History] Acetaminophen/oxyCODONE [Percocet 325-5 MG] 1 tab PO Q6H PRN #12 tab 02/09/21 [Rx] Amoxicillin/Clavulanate K [Augmentin 875-125 MG] 1 tab PO Q12HR #15 tab 02/09/21 [Rx] Past Medical History - Past Health History Medical/Surgical History: Denies Medical/Surgical History HEENT History: Reports: Otitis Media Cardiovascular History: Reports: None Respiratory History: Reports: None Gastrointestinal History: Reports: Other (See Below) Other Gastrointestinal History: Has had a loss of appetite and was dieting and lost 40 lbs. Genitourinary History: Reports: None Musculoskeletal History: Reports: None Neurological History: Reports: None Psychiatric History: Reports: ADD, ADHD Endocrine/Metabolic History: Reports: None Hematologic History: Reports: None Immunologic History: Reports: None Oncologic (Cancer) History: Reports: None Dermatologic History: Reports: None - Infectious Disease History Infectious Disease History: Reports: None - Past Surgical History HEENT Surgical History: Reports: Oral Surgery Musculoskeletal Surgical History: Reports: None Social & Family History - Family History Family Medical History: No Pertinent Family History - Tobacco Use Tobacco Use Status *Q: Current Some Day Tobacco User Years of Tobacco use: 5 Packs/Tins Daily: 0.3 Used Tobacco, but Quit: No - Caffeine Use Caffeine Use: Reports: Coffee, Energy Drinks, Soda, Tea - Recreational Drug Use Recreational Drug Use: Yes ED ROS ENT - Review of Systems Review Of Systems: Comprehensive ROS is negative, except as noted in HPI. ED EXAM, ENT - Physical Exam Exam: See Below Exam Limited By: No Limitations General Appearance: Alert, WD/WN, No Apparent Distress Eye Exam: Bilateral Eye: EOMI, Normal Inspection Ears: Other (The left auricle is swollen and somewhat erythematous, however, the swelling does not extend to the left mastoid process. The external auditory canal is swollen closed, however, an ear wick is visible within the canal.) Nose: Normal Inspection, Normal Mucousa, No Blood Mouth/Throat: Normal Inspection, Normal Gums, Normal Lips, Normal Oropharynx, Normal Teeth Head: Atraumatic, Facial Swelling (minimal left) Neck: Normal Inspection, Supple, Non-Tender, Full Range of Motion. No: Lymphadenopathy (L), Lymphadenopathy (R) Course - Vital Signs Last Recorded V/S: Last Vital Signs Temp 36.1 C 02/10/21 05:06 Pulse 60 02/10/21 05:06 Resp 18 02/10/21 05:06 BP 121/80 02/10/21 05:06 Pulse Ox - Re-Assessments/Exams Free Text/Narrative Re-Assessment/Exam: 02/10/21 05:32 As above, the patient has had left ear pain since last Sunday or , was seen at the walk-in clinic on Sunday, diagnosed with left otitis externa, prescribed Cortisporin otic and oral cephalexin, then seen in this ED on Sunday, where an ear wick was placed and his cephalexin switched to Augmentin. He was also prescribed 12 tablets of Percocet. He now returns the ED with continued pain and swelling. No recent fever. He has not made an appointment to follow-up with a PCP or ENT as instructed. On examination today, he has moderate swelling of his left auricle and complete occlusion of the external auditory canal, although the wick is still present. I agree with the ED Physician from Sunday that the patient needs to follow-up with an ENT. The patient already has the phone numbers for [facility] and [facility], and I encouraged him to call this morning. For today's purposes, I can refer the patient specifically to Dr. Tan Salgado, but, as I explained to the patient, I do not have Dr. Salgado's office schedule, and I believe that the best route for the patient is to call one of the numbers prov ided to him on Sunday. The patient said that he would. Departure - Departure Time of Disposition: 05:39 Disposition: Home, Self-Care 01 Condition: Good Clinical Impression: Left otitis externa Qualifiers: Otitis externa type: unspecified type Chronicity: acute Qualified Code(s): H60.502 - Unspecified acute noninfective otitis externa, left ear - Discharge Information *PRESCRIPTION DRUG MONITORING PROGRAM REVIEWED*: Not Applicable *COPY OF PRESCRIPTION DRUG MONITORING REPORT IN PATIENT SIS: Not Applicable Referrals: PCP,None [Primary Care Provider] - Tan Salgado MD [Ordering Only Provider] - Additional Instructions: You were seen in the emergency room for continued pain and swelling of your left ear. On examination, I agree with your previous diagnosis of left otitis externa. I recommend that you continue to take the Augmentin as prescribed and instill the eardrops into your left ear as previously prescribed. In addition to your previously prescribed Percocet, you may take [id number] ibuprofen, 3 tablets (600 mg) up to every 8 hours, with food, as needed for discomfort. As discussed, we recommend that you follow-up with an ENT (Pediatric Physician) as soon as possible, however, there are no ENTs available in [place]. You may try to get an appointment with the Pediatric Physician Dr. Tan Salgado at the number provided, however, the fastest way to get an appointment to see an ENT is to call either the [facility] physician referral service at [phone] or the [facility] physician referral service at [phone], to make an appointment to see an ENT as soon as possible. If any other problems, please do not hesitate to return to the ER. Sepsis Event Note (ED) - Evaluation Sepsis Screening Result: No Definite Risk - Focused Exam Vital Signs: Vital Signs Temp Pulse Resp BP 02/10/21 05:06 36.1 C 60 18 121/80
== END 2021-02-10 05:49 | disposition home or self-care (01) ==
LOC: JD.ED 05:01
DX: H60.502 Unspecified acute noninfective otitis externa, left ear (principal); Z72.0 Tobacco use
CPT/HCPCS: 99282

== ENCOUNTER 2021-02-10 15:51 | Emergency (ER) | payer OTHER ==
[2021-02-10] MEDS ORDERED: HYDROmorphone 1 MG/ML Syringe IM ONE (16:09)
[2021-02-10] MEDS ORDERED: Levofloxacin 500 MG Tab PO ONE (16:10)
--- NOTE | 2021-02-10 16:21 | EDM.PDOC ---
ED HPI GENERAL MEDICAL PROBLEM - General Chief Complaint: ENT Problem Stated Complaint: ENT RE CK Time Seen by Provider: 02/10/21 15:58 Source of Information: Reports: Patient, RN Notes Reviewed History Limitations: Reports: No Limitations - History of Present Illness INITIAL COMMENTS - FREE TEXT/NARRATIVE: Patient is a 30-year-old male who presents to the ER for his ongoing otitis externa in his left ear. Patient has been seen in this ER multiple times on February 08, and again last night or early this morning for ongoing management. He was given IV antibiotics on February 08, and had a head/sinus CT which showed no sign of mastoiditis at that time. Patient is complaining of increased redness/swelling to his left ear, and he still having drainage to the left ear. Notes that he has had an ear wick in place for the last few days as well indication in the old records would state that this was probably placed by Dr. Downey on the ER visit on February 08. I do not believe that the walk-in clinic would have placed an ear wick for eardrops. I believe he was also placed on Cortisporin eardrops. He does have an appoint with Dr. Salgado, ENT tomorrow in [place] for ongoing management, he was in contact with the ENT today, and ENT was concerned due to ongoing infection and would like some more IV antibiotics, wound cultures, and a switch in oral antibiotics for more broad coverage. Patient states that he has had no fevers or chills, cough or shortness of breath, but he is having increased swelling, pain to his left ear, and took his last Percocet around 6 hours ago so he is in quite a bit of pain at this time. He does note that his girlfriend stated that there is more drainage, and she cannot see the ear wick any longer. He also states that he has had loss of his sense of taste as well over the last day. - Related Data Allergies Allergy/AdvReac Type Severity Reaction Status Date / Time No Known Allergies Allergy Verified 02/10/21 16:00 Home Meds: Home Meds Acetaminophen/oxyCODONE [Percocet 325-5 MG] 1 tab PO Q6H PRN #12 tab 02/09/21 [Rx] Ciprofloxacin HCl/Dexameth [Ciproflox-Dexameth Otic Susp] 4 drop OT BID #1 bottle 02/10/21 [Rx] levoFLOXacin [Levaquin] 500 mg PO DAILY #10 tab 02/10/21 [Rx] oxyCODONE HCl/Acetaminophen [Percocet 10-325 mg Tablet] 1 each PO Q4H #5 tablet 02/10/21 [Rx] Past Medical History - Past Health History Medical/Surgical History: Denies Medical/Surgical History HEENT History: Reports: Otitis Media Cardiovascular History: Reports: None Respiratory History: Reports: None Gastrointestinal History: Reports: Other (See Below) Other Gastrointestinal History: Has had a loss of appetite and was dieting and lost 40 lbs. Genitourinary History: Reports: None Musculoskeletal History: Reports: None Neurological History: Reports: None Psychiatric History: Reports: ADD, ADHD Endocrine/Metabolic History: Reports: None Hematologic History: Reports: None Immunologic History: Reports: None Oncologic (Cancer) History: Reports: None Dermatologic History: Reports: None - Infectious Disease History Infectious Disease History: Reports: None - Past Surgical History Head Surgeries/Procedures: Reports: None HEENT Surgical History: Reports: Oral Surgery Musculoskeletal Surgical History: Reports: None Social & Family History - Family History Family Medical History: No Pertinent Family History - Tobacco Use Tobacco Use Status *Q: Current Every Day Tobacco User Years of Tobacco use: 15 Packs/Tins Daily: 0.5 - Caffeine Use Caffeine Use: Reports: Coffee, Energy Drinks, Soda, Tea - Recreational Drug Use Recreational Drug Use: No ED ROS ENT - Review of Systems Review Of Systems: Comprehensive ROS is negative, except as noted in HPI. ED EXAM, ENT - Physical Exam Exam: See Below Exam Limited By: No Limitations General Appearance: Alert, WD/WN, No Apparent Distress Eye Exam: Bilateral Eye: EOMI, Normal Inspection, PERRL Ears: Normal Canal (right TM), Auricular Erythema (L auricle), Canal Discharge (L EAC), Canal Swelling (L EAC), Other (multiple inflamed lymph nodes pre- auricular and submandibular on left side.). No: Mastoid Swelling, Mastoid Te nderness Nose: Normal Inspection, Normal Mucousa, No Blood Mouth/Throat: Normal Inspection, Normal Gums, Normal Lips, Normal Oropharynx, Normal Teeth Head: Atraumatic, Normocephalic Neck: Normal Inspection, Supple, Non-Tender, Full Range of Motion Respiratory/Chest: No Respiratory Distress, Lungs Clear, Normal Breath Sounds, No Accessory Muscle Use, Chest Non-Tender Cardiovascular: Normal Peripheral Pulses, Regular Rate, Rhythm, No Edema Extremities: Normal Inspection, Normal Capillary Refill Neurological: Alert, Oriented, Normal Cognition, No Motor/Sensory Deficits Psychiatric: Normal Affect, Normal Mood Skin: Warm, Dry, Intact, Normal Color, No Rash Course - Vital Signs Last Recorded V/S: Last Vital Signs Temp 99.1 F 02/10/21 16:04 Pulse 67 02/10/21 16:04 Resp 18 02/10/21 16:04 BP 152/77 H 02/10/21 16:04 Pulse Ox 98 02/10/21 16:04 - Orders/Labs/Meds Orders: Active Orders 24 hr Category Date Time Status CULTURE ANAEROBIC + SMEAR [RM] Stat Lab 02/10/21 17:05 Received CULTURE EAR [RM] Stat Lab 02/10/21 17:05 Received Labs: Laboratory Tests 02/10/21 Range/Units 16:11 Influenza Type A RNA Negative (NEGATIVE) Influenza Type B RNA Negative (NEGATIVE) SARS-CoV-2 RNA (MANDO) Negative (NEGATIVE) Meds: Medications Discontinued Medications Generic Name Dose Route Start Last Admin Trade Name Freq PRN Reason Stop Dose Admin Ceftriaxone Sodium 2 gm/ 0 gm 02/10/21 16:30 02/10/21 16:33 Lidocaine HCl 4.2 ml IM 02/10/21 16:31 5 inj ONETIME ONE Administration Hydromorphone HCl 1 mg 02/10/21 16:09 02/10/21 16:16 Hydromorphone 1 Mg/Ml Syringe IM 02/10/21 16:10 1 mg ONETIME ONE Administration Levofloxacin 500 mg 02/10/21 16:10 02/10/21 16:16 Levofloxacin 500 Mg Tab PO 02/10/21 16:11 500 mg ONETIME ONE Administration - Re-Assessments/Exams Free Text/Narrative Re-Assessment/Exam: 02/10/21 16:23 Patient presents back to the ER via direction of the ENT for antibiotics, drainage culture, and a switch in oral antibiotics. He requested that the ear wick be taken out if possible. I will see if I can locate this after the ear cultures have been obtained. Patient has been given IM dilaudid for pain management and I have ordered a COVID screen to be done as well. 02/10/21 17:27 Covid screen has come back and is negative for today's purposes. We did get cultures of the drainage of the patient here, we took out the old ear wick, and instilled a new one per ENT instruction patient got Rocephin, and oral Levaquin in the ER, along with Dilaudid for pain management. We will get him home with recommendations from ENT and antibiotics for use and have him follow-up with ENT tomorrow. Departure - Departure Time of Disposition: 17:28 Disposition: Home, Self-Care 01 Condition: Good Clinical Impression: Otitis externa Qualifiers: Otitis externa type: other infective Chronicity: acute Laterality: left Qualified Code(s): H60.392 - Other infective otitis externa, left ear - Discharge Information *PRESCRIPTION DRUG MONITORING PROGRAM REVIEWED*: Yes *COPY OF PRESCRIPTION DRUG MONITORING REPORT IN PATIENT SIS: No Prescriptions: Ciprofloxacin HCl/Dexameth [Ciproflox-Dexameth Otic Susp] 4 drop OT BID #1 bottle levoFLOXacin [Levaquin] 500 mg PO DAILY #10 tab oxyCODONE HCl/Acetaminophen [Percocet 10-325 mg Tablet] 1 each PO Q4H #5 tablet Instructions: Otitis Externa, [id number] Referrals: Tan Salgado MD [Ordering Only Provider] - Forms: ED Department Discharge Additional Instructions: You were seen in this ER for your ongoing otitis externa. The ear wick that was placed at one of your last ER visits, was taken out, and a new one was placed into your left ear canal. You will need to use the new Ciprodex eardrops that were prescribed to you, 4 drops immediately when you get home, and do another 4 drops tonight before bed, and then again 4 drops before you go to see the ENT tomorrow, you may resume 2 times a day dosing, or resume dosing if told otherwise by your ENT provider tomorrow. You were given 5 tablets of a pain medication, that has increased dosage of the pain reliever in it, due to increased pain in your left ear. Please take as directed. You were given oral Levaquin as well, your first dose was in the ER, you do not need to start taking this on a continual basis, until tomorrow once again. All medications were prescribed to the [facility] located in the [employer] [facility]. You may also use 600 mg ibuprofen every 6 hours for inflammation relief of your left ear, this should provide some relief from the pain/swelling as well. Please keep your appoint with Dr. Salgado, ENT in [place] tomorrow for ongoing management. Return to the ED if your symptoms should change or worsen. Sepsis Event Note (ED) - Evaluation Sepsis Screening Result: No Definite Risk - Focused Exam Vital Signs: Vital Signs Temp Pulse Resp BP Pulse Ox 02/10/21 16:04 99.1 F 67 18 152/77 H 98 - My Orders Last 24 Hours: My Active Orders 02/10/21 17:05 CULTURE ANAEROBIC + SMEAR [RM] Stat CULTURE EAR [RM] Stat - Assessment/Plan Last 24 Hours: My Active Orders 02/10/21 17:05 CULTURE ANAEROBIC + SMEAR [RM] Stat CULTURE EAR [RM] Stat
[2021-02-10] MEDS ORDERED: cefTRIAXone 2 GM, Lidocaine 1% 4.2 ML IM ONE ×2 (16:30)
[2021-02-10 16:53] LABS: CORONAVIRUS COVID-19 NAA NEGATIVE (NEGATIVE)
== END 2021-02-10 17:48 | disposition home or self-care (01) ==
LOC: JD.ED 15:51
DX: H60.392 Other infective otitis externa, left ear (principal); Z72.0 Tobacco use; Z20.822 Contact with and (suspected) exposure to COVID-19
CPT/HCPCS: 0240U; 87075; 87205; 96372; 99283; A9270; J0696; J1170; 87070

== ENCOUNTER 2021-06-26 17:55 | Emergency (ER) | payer OTHER ==
--- NOTE | 2021-06-26 18:22 | EDM.PDOC ---
ED HPI GENERAL MEDICAL PROBLEM - General Chief Complaint: Back Pain or Injury Stated Complaint: BACK PAIN Time Seen by Provider: 06/26/21 18:22 - History of Present Illness INITIAL COMMENTS - FREE TEXT/NARRATIVE: 31-year-old male presents emergency room with back pain. Patient believes he strained his back sliding a heavy box across his concrete. He did okay with this. The next morning he had significant discomfort in his m id back region. He tried some ibuprofen one time and it did not seem to help much. The next morning he woke up had significant discomfort and by the end of the day he was able to function pretty well. But then over the last couple days it just got worse. Last night he had some relief after taking hydrocodone that he had left over from a toothache. Patient has had no loss of bowel or bladder control no radicular symptoms into the lower extremities. Upper Back Pain Score (Numeric/FACES): 10 - Related Data Allergies Allergy/AdvReac Type Severity Reaction Status Date / Time No Known Allergies Allergy Verified 06/26/21 18:16 Home Meds: Home Meds Naproxen 500 mg PO BID #20 tablet 06/26/21 [Rx] Orphenadrine [Norflex] 100 mg PO BID PRN #20 tab 06/26/21 [Rx] oxyCODONE HCl/Acetaminophen [Percocet 10-325 mg Tablet] 1 each PO Q4H PRN 06/26/21 [History] Past Medical History - Past Health History Medical/Surgical History: Denies Medical/Surgical History HEENT History: Reports: Otitis Media Cardiovascular History: Reports: None Respiratory History: Reports: None Gastrointestinal History: Reports: Other (See Below) Other Gastrointestinal History: Has had a loss of appetite and was dieting and lost 40 lbs. Genitourinary History: Reports: None Musculoskeletal History: Reports: None Neurological History: Reports: None Psychiatric History: Reports: ADD, ADHD Endocrine/Metabolic History: Reports: None Hematologic History: Reports: None Immunologic History: Reports: None Oncologic (Cancer) History: Reports: None Dermatologic History: Reports: None - Infectious Disease History Infectious Disease History: Reports: None - Past Surgical History HEENT Surgical History: Reports: Oral Surgery Social & Family History - Family History Family Medical History: No Pertinent Family History - Tobacco Use Tobacco Use Status *Q: Current Every Day Tobacco User Years of Tobacco use: 8 Packs/Tins Daily: 0.3 - Caffeine Use Caffeine Use: Reports: Coffee, Energy Drinks, Soda, Tea - Recreational Drug Use Recreational Drug Use: No ED ROS GENERAL - Review of Systems Review Of Systems: See Below Constitutional: Reports: No Symptoms Respiratory: Reports: No Symptoms Cardiovascular: Reports: No Symptoms GI/Abdominal: Reports: No Symptoms : Reports: No Symptoms Musculoskeletal: Reports: Back Pain ED EXAM, GENERAL - Physical Exam Exam: See Below Exam Limited By: No Limitations General Appearance: Alert, No Apparent Distress Head: Atraumatic, Normocephalic Neck: Normal Inspection, Supple, Non-Tender, Full Range of Motion Respiratory/Chest: No Respiratory Distress, Lungs Clear, Normal Breath Sounds Cardiovascular: Regular Rate, Rhythm, No Edema, No Murmur GI/Abdominal: Normal Bowel Sounds, Soft, Non-Tender Back Exam: Normal Inspection, Other (In the mid to lower thoracic area the patient has some discomfort in the midline this seems to be more or less isolated to the medial aspect of the paraspinous muscles. And this seems to be where his pain is the worst exam of the lumbar spine is unremarkable). No: CVA Tenderness (L), CVA Tenderness (R) Course - Vital Signs Last Recorded V/S: Last Vital Signs Temp 36.8 C 06/26/21 18:15 Pulse 76 06/26/21 18:15 Resp 18 06/26/21 18:15 BP 153/98 H 06/26/21 18:15 Pulse Ox 98 06/26/21 18:15 - Orders/Labs/Meds Orders: Active Orders 24 hr Category Date Time Status Thoracic Spine 3V [CR] Stat Exams 06/26/21 18:38 Taken Meds: Medications Discontinued Medications Generic Name Dose Route Start Last Admin Trade Name Freq PRN Reason Stop Dose Admin Ketorolac Tromethamine 30 mg 06/26/21 19:22 Ketorolac 30 Mg/Ml Sdv IM 06/26/21 19:23 ONETIME ONE Orphenadrine Citrate 100 mg 06/26/21 19:23 Orphenadrine 100 Mg Tab.Er PO 06/26/21 19:24 ONETIME ONE - Re-Assessments/Exams Free Text/Narrative Re-Assessment/Exam: 06/26/21 19:31 I went ahead and check thoracic spine x-rays with the near midline discomfort the patient was having these did not reveal any acute fracture or abnormality. Official radiologic interpretation pending. Patient will be treated tonight with Toradol 30 mg IM and Norflex I will send prescription for Norflex and naproxen to the [facility] pharmacy in [place]. Departure - Departure Time of Disposition: 19:32 Disposition: Home, Self-Care 01 Clinical Impression: Strain of thoracic back region - Discharge Information Referrals: PCP,None [Primary Care Provider] - Forms: ED Department Discharge Additional Instructions: Return to the emergency room with any questions problems or worsening symptoms. You been started on Norflex this is a muscle relaxant take it twice daily as needed. Use caution as it can cause sedation. Until you know how it affects your system allow 12 hours after using this medication before driving or returning to work. You have been started on Naprosyn this is an ibuprofen like medication take it with your morning and evening meals. Do not take ibuprofen while using this medication Both these prescriptions have been sent to the [place] pharmacy in the [employer] store. Follow-up in the hospital clinic in 1 week for recheck their phone number is [phone]. Sepsis Event Note (ED) - Evaluation Sepsis Screening Result: No Definite Risk - Focused Exam Vital Signs: Vital Signs Temp Pulse Resp BP Pulse Ox 06/26/21 18:15 36.8 C 76 18 153/98 H 98 - My Orders Last 24 Hours: My Active Orders 06/26/21 18:38 Thoracic Spine 3V [CR] Stat - Assessment/Plan Last 24 Hours: My Active Orders 06/26/21 18:38 Thoracic Spine 3V [CR] Stat
[2021-06-26] MEDS ORDERED: Ketorolac 30 MG/ML SDV IM ONE (19:22)
[2021-06-26] MEDS ORDERED: Orphenadrine 100 MG Tab.ER PO ONE (19:23)
--- NOTE | 2021-06-26 19:35 | CR ---
Thoracic spine: AP, lateral and swimmer's views of the thoracic spine were obtained. Comparison: No prior thoracic spine imaging is available. Mild scoliosis is noted. Very minimal scattered disc space narrowing is seen within the thoracic spine as well as within the visualized cervical spine. Pedicles are intact. No subluxation or fracture is seen. Impression: 1. Minimal scattered disc space narrowing within the cervical and thoracic spine. 2. Mild scoliosis. 3. Nothing acute is definitely appreciated. Diagnostic code #2
== END 2021-06-26 20:05 | disposition home or self-care (01) ==
LOC: JD.ED 17:55
DX: S29.012A Strain of muscle and tendon of back wall of thorax, initial encounter (principal); Z72.0 Tobacco use; X50.0XXA Overexertion from strenuous movement or load, initial encounter
CPT/HCPCS: 72072; 96372; 99283; A9270; J1885

== ENCOUNTER 2022-03-01 20:06 | Emergency (ER) | payer OTHER ==
[2022-03-01] MEDS ORDERED: traMADol 50 MG Tab PO ONE (20:37)
== END 2022-03-01 21:15 | disposition home or self-care (01) ==
LOC: JD.ED 20:06
DX: M25.511 Pain in right shoulder (principal)
CPT/HCPCS: 73030-26-RT; 73030-RT; 99283-25; A9270-GY

== ENCOUNTER 2024-05-10 18:19 | Emergency (ER) | payer OTHER ==
[2024-05-10] MEDS ORDERED: Sodium Chloride 0.9% 10 ML Syringe FLUSH PRN (19:01)
[2024-05-10 19:32] LABS: BASOPHILS PERCENT AUTO 0.4 % (0.0-1.0); EOSINOPHILS ABSOLUTE AUTO 0.1 K/mm3 (0.0-0.4); EOSINOPHILS PERCENT AUTO 0.9 % (0.0-6.0); HEMOGLOBIN 14.4 gm/dl (14.0-18.0); IMMATURE GRAN ABSOLUTE AUTO 0.01 K/mm3 (0.00-0.05); IMMATURE GRAN PERCENT AUTO 0.2 % (0.0-0.4); LYMPHOCYTES ABSOLUTE AUTO 3.1 K/mm3 (1.0-4.8); LYMPHOCYTES PERCENT AUTO 57.2 % (24.0-44.0); MEAN CORPUSCULAR HEMOGLOBIN 34.6 pg (28.0-32.0); MEAN CORPUSCULAR VOLUME 96.2 fl (83.0-99.0); MEAN PLATELET VOLUME 11.2 fl (9.4-12.4); MONOCYTES ABSOLUTE AUTO 0.5 K/mm3 (0.0-0.8); MONOCYTES PERCENT AUTO 10.1 % (0.0-8.0); NEUTROPHILS ABSOLUTE AUTO 1.7 K/mm3 (1.8-7.7); NEUTROPHILS PERCENT AUTO 31.2 % (41.0-71.0); PLATELET COUNT,PLT 172 K/mm3 (150-400); RED BLOOD CELL COUNT 4.16 M/mm3 (4.52-5.90); WHITE BLOOD CELL COUNT,WBC 5.33 K/mm3 (3.9-11.3)
[2024-05-10 20:04] LABS: A/G RATIO 1.1 (1-2); ALBUMIN 3.3 g/dl (3.4-5.0); ANION GAP 9.2 (5-15); BILIRUBIN TOTAL 0.4 mg/dL (0.2-1.0); CALCIUM 8.3 mg/dL (8.5-10.1); EST CRCL DRUG DOSING (CG) 104.09 mL/min; POTASSIUM,K 3.2 mEq/L (3.5-5.1); PROTEIN TOTAL,TP 6.4 g/dl (6.4-8.2)
[2024-05-10] MEDS: Sodium Chloride 0.9% 1,000 ML IV SCH (20:07)
[2024-05-10] MEDS: Ciprofloxacin 0.3% Ophth Soln 5 ML Bottle EYELF ONE (21:03)
== END 2024-05-10 21:05 | disposition home or self-care (01) ==
LOC: JD.ED 18:19
DX: E86.0 Dehydration (principal); H00.014 Hordeolum externum left upper eyelid
CPT/HCPCS: 36415; 71045; 80053; 83735; 85025; 96360; 99285; A9270; J7030; 99283